=== PATIENT | female | born 1995 | race Caucasian/White ===

== ENCOUNTER 2021-05-22 14:47 | Emergency (ER) | payer BC ==
[~2021-05-22] VITALS: Ht 165.1 cm; Wt 68.0 kg
[2021-05-22] MEDS ORDERED: SODIUM CHLORIDE 0.9% 1000ML 1,000 ML IV SCH (15:30)
[2021-05-22 16:17] LABS: BASOPHILS % 0.7 % (0.0-1.0); EOSINOPHILS # (AUTO) 0.5 (0.0-0.4); HEMATOCRIT 40.9 % (34.2-44.1); HEMOGLOBIN 13.9 g/dL (12.0-16.0); LYMPHOCYTES # (AUTO) 2.2 (1.0-3.2); MEAN CORPUSCULAR HEMOGLOBIN 30.5 pg (28-32); MEAN CORPUSCULAR VOLUME 89.9 fL (81-99); MONOCYTES # (AUTO) 0.6 (0.2-0.8); MONOCYTES % 10.6 % (4.4-11.3); NEUTROPHILS # (AUTO) 2.6 (2.1-6.9); NEUTROPHILS % 43.2 % (38.7-80.0); PLATELET COUNT 354 x10e3/uL (140-360); RED BLOOD COUNT 4.55 x10e6/uL (3.6-5.1)
[2021-05-22 16:29] LABS: AMPHETAMINES SCREEN,URINE NEGATIVE (NEGATIVE); BENZODIAZEPINES SCREEN,URINE NEGATIVE (NEGATIVE); PHENCYCLIDINE SCREEN,URINE NEGATIVE (NEGATIVE)
[2021-05-22 16:35] LABS: ALBUMIN 4.6 g/dL (3.5-5.0); ALBUMIN/GLOBULIN RATIO 1.8 (0.8-2.0); ANION GAP 14.9 mmol/L (8-16); CREATININE, SERUM 0.82 mg/dL (0.57-1.11); POTASSIUM 3.9 mmol/L (3.5-5.1)
[2021-05-22 16:51] LABS: CALCIUM 9.8 mg/dL (8.4-10.2)
[2021-05-22] MEDS ORDERED: TENORMIN25 MG PO (17:16)
== END 2021-05-22 17:45 | disposition home or self-care (01) ==
LOC: ER 15:22
DX: E05.90 Thyrotoxicosis, unspecified without thyrotoxic crisis or storm (principal); R00.0 Tachycardia, unspecified; R00.2 Palpitations; E07.89 Other specified disorders of thyroid; J45.909 Unspecified asthma, uncomplicated; Z88.1 Allergy status to other antibiotic agents; Z86.16 Personal history of COVID-19
CPT/HCPCS: 36415; 71045; 80053; 80307; 84436; 84443; 84479; 84702; 85025; 85379; 93005; 99284; J7030

== ENCOUNTER 2024-03-02 17:45 | Emergency (ER) | payer BC, OTHER ==
[~2024-03-02] VITALS: Ht 165.1 cm; Wt 63.0 kg
[~2024-03-02 17:45] MED LIST: TENORMIN25 MG PO
[2024-03-02 18:35] VITALS: PULSE 59; RESP 16; TEMP 98.1
[2024-03-02] MEDS ORDERED: CYCLOBENZAPRINE5 MG PO (20:25)
[2024-03-02 21:46] VITALS: BP 106/54; PULSE 74; RESP 18; TEMP 98.3; O2SAT 100
== END 2024-03-02 20:43 | disposition home or self-care (01) ==
LOC: FSED 18:23
DX: M54.2 Cervicalgia (principal); R51.9 Headache, unspecified; V43.62XA Car passenger injured in collision with other type car in traffic accident, initial encounter; Y92.488 Other paved roadways as the place of occurrence of the external cause; J45.909 Unspecified asthma, uncomplicated; E07.9 Disorder of thyroid, unspecified
CPT/HCPCS: 70450; 72125; 99283